=== PATIENT | female | born 1990 | race American Indian/Alaskan Native ===

== ENCOUNTER 2022-01-22 11:16 | Outpatient (CLI) | payer MEDICAID ==
[2022-01-22 12:21] VITALS: BP 113/61
[2022-01-22] MEDS ORDERED: LACTATED RINGERS 500 ML IV ONE (13:07)
== END 2022-01-22 13:18 | disposition home or self-care (01) ==
LOC: TRG 11:16 → APU 11:51 → TRG 13:18
PROVIDERS: ATTEND Obstetrics & Gynecology
DX: O26.893 Other specified pregnancy related conditions, third trimester (principal); N89.8 Other specified noninflammatory disorders of vagina; Z3A.30 30 weeks gestation of pregnancy
CPT/HCPCS: 59025

== ENCOUNTER 2022-03-24 03:40 | Inpatient (IN) | payer MEDICAID ==
[2022-03-24] MEDS ORDERED: CARBOPROST TROMETHAMINE 250 MCG/1 ML INJ IM PRN (04:21)
[2022-03-24] MEDS ORDERED: BUTORPHANOL 2 MG/1 ML INJ IV PRN (04:21)
[2022-03-24] MEDS ORDERED: METHYLERGONOVINE MALEATE 0.2 MG/ML VIAL IM PRN (04:21)
[2022-03-24] MEDS ORDERED: FAMOTIDINE 20 MG/2 ML INJ IV ONE ×2 (04:21→07:10)
[2022-03-24] MEDS ORDERED: LOPERAMIDE 2 MG CAP PO PRN (04:21)
[2022-03-24] MEDS ORDERED: BICITRA ORAL LIQD 30ML PO ONE (04:21)
[2022-03-24] MEDS ORDERED: ePHEDrine SULFATE 50 MG/1 ML INJ IV PRN (04:21)
[2022-03-24] MEDS ORDERED: METOCLOPRAMIDE 10 MG/2 ML INJ IV ONE (04:21)
[2022-03-24] MEDS ORDERED: miSOPROStol 200 MCG TAB PR PRN (04:21)
[2022-03-24] MEDS ORDERED: LACTATED RINGERS 1,000 ML ONE (04:26)
[2022-03-24] MEDS ORDERED: LACTATED RINGERS 1,000 ML IV SCH ×2 (04:30)
[2022-03-24 04:42] LABS: Basophils % (Auto) 0.1 % (0.0-1.8); Eosinophils % (Auto) 0.3 % (0.0-4.3); Hematocrit 35.3 % (30.3-42.9); Lymphocytes # (Auto) 1.8 K/mm3 (1.2-5.4); Lymphocytes % (Auto) 14.3 % (13.4-35.0); Mean Corpuscular HGB Conc 34 % (30-34); Mean Corpuscular Volume 89 fl (79-97); Monocytes # (Auto) 0.6 K/mm3 (0.0-0.8); Monocytes % (Auto) 4.9 % (0.0-7.3); Platelet Count 237 K/mm3 (140-440); Red Blood Count 3.96 M/mm3 (3.65-5.03)
[2022-03-24] MEDS ORDERED: OXYTOCIN DRIP 30 UNITS/500 ML BAG IV SCH ×2 (05:00→08:00)
[2022-03-24] MEDS ORDERED: METOCLOPRAMIDE 10 MG/2 ML INJ ONE (07:10)
[2022-03-24] MEDS ORDERED: ceFAZolin/Water 2 GM/20 ML 2 GM/20 ML SYRINGE IV ONE (07:10)
[2022-03-24] MEDS ORDERED: BICITRA ORAL LIQD 30ML ONE (07:10)
--- NOTE | 2022-03-24 07:24 | Anesthesia Day of Surgery ---
Anesthesia Day of Surgery - Day of Surgery Patient Examined: Yes Patient H&P Reviewed: Yes Patient is NPO: Yes
--- NOTE | 2022-03-24 07:30 | Anesthesia Consultation ---
Anesthesia Consult and Med Hx Date of service: 03/24/22 - Airway Anesthetic Teeth Evaluation: Poor ROM Head & Neck: Adequate Mental/Hyoid Distance: Adequate Mallampati Class: Class II Intubation Access Assessment: Probably Good - Pulmonary Exam CTA: Yes - Cardiac Exam Cardiac Exam: RRR - Pre-Operative Health Status ASA Pre-Surgery Classification: ASA2 Proposed Anesthetic Plan: Spinal - Pre-Anesthesia Comment Pre-Anesthesia Comments: csection 2018 - Pulmonary Hx Smoking: No Hx Asthma: Yes (seasonal) - Cardiovascular System Hx Hypertension: Yes (at the start of this no medications prdered) Hx Heart Attack/AMI: No Hx Angina: No Hx Percutaneous Transluminal Coronary Angioplasty (PTCA): No Hx Cardia Arrhythmia: No Hx Pacemaker: No Hx Internal Defibrillator: No - Central Nervous System Hx Neuromuscular Disorder: No Hx Seizures: No Hx Back Pain: Yes Hx Psychiatric Problems: No - Gastrointestinal Hx Ulcer: No Hx Gastroesophageal Reflux Disease: No - Endocrine Hx Renal Disease: No Hx Hypothyroidism: No Hx Hyperthyroidism: No - Hematic Hx Anemia: No Hx Sickle Cell Disease: No - Other Systems Hx Alcohol Use: No Hx Substance Use: Yes Hx Obesity: Yes
[2022-03-24] MEDS ORDERED: ONDANSETRON 4 MG/2 ML INJ IV PRN (07:44)
[2022-03-24] MEDS ORDERED: LANOLIN/ZINC/DIMETHICONE (LANSINOH) 7 GM TP PRN (07:44)
[2022-03-24] MEDS ORDERED: ACETAMINOPHEN 325 MG TAB PO PRN (07:44)
[2022-03-24] MEDS ORDERED: WITCH HAZEL/ GLYCERIN PAD TP PRN (07:44)
[2022-03-24] MEDS ORDERED: IBUPROFEN 600 MG TAB PO PRN (07:44)
[2022-03-24] MEDS ORDERED: NALOXONE 0.4 MG/1 ML INJ IV PRN (07:44)
[2022-03-24] MEDS ORDERED: MORPHINE 4 MG/1 ML INJ IV PRN (07:44)
[2022-03-24] MEDS ORDERED: SIMETHICONE 80 MG CHEW TAB PO PRN (07:44)
--- NOTE | 2022-03-24 07:44 | History and Physical Report ---
History of Present Illness Date of examination: 03/24/22 Date of admission: 03/24/22 07:34 Chief complaint: Contractions History of present illness: 31-year-old -0-0-1 at 38+6 weeks who presents with regular uterine contractions. The patient receives care with Dr. Marianne Garnica. She has a history of a previous delivery and elects to undergo repeat . She denies leakage of fluid. Past History Past Medical History: no pertinent history Past Surgical History: section Social history: - Obstetrical History Expected Date of Delivery: 04/01/22 Actual Gestation: 38 Week(s) 6 Day(s) : 2 Para: 1 Hx # Term Pregnancies: 1 Spontaneous Abortions: 0 Induced : 0 Number of Living Children: 1 Medications and Allergies Allergies Allergy/AdvReac Type Severity Reaction Status Date / Time No Known Allergies Allergy Unverified 01/22/22 13:06 Active Meds: Active Medications Butorphanol Tartrate (Butorphanol 2 Mg/1 Ml Inj) 1 mg IV Q2H PRN PRN Reason: Pain, Moderate(4-6) LABOR PAIN Last Admin: 03/24/22 04:37 Dose: 1 mg Carboprost Tromethamine (Carboprost Tromethamine 250 Mcg/1 Ml Inj) 250 mcg IM ONCE PRN PRN Reason: Uterine Bleeding Ephedrine Sulfate (Ephedrine Sulfate 50 Mg/1 Ml Inj) 10 mg IV Q2M PRN PRN Reason: Hypotension Lactated Ringer's (Lactated Ringers) 1,000 mls @ 125 mls/hr IV DIRECT ISA Lactated Ringer's (Lactated Ringers) 1,000 mls @ 2,250 mls/hr IV PREOP ISA Stop: 03/25/22 04:57 Oxytocin/Sodium Chloride (Pitocin/Ns 30 Unit/500ml) 30 units in 500 mls @ 0 mls/hr IV TITR ISA; Protocol Loperamide HCl (Loperamide 2 Mg Cap) 2 mg PO ONCE PRN PRN Reason: give with Hemabate Methylergonovine Maleate (Methylergonovine Maleate 0.2 Mg/Ml Vial) 0.2 mg IM ONCE PRN PRN Reason: Uterine Bleeding Misoprostol (Misoprostol 200 Mcg Tab) 800 mcg [place] ONCE PRN PRN Reason: Uterine Bleeding Review of Systems All systems: negative Genitourinary: pelvic pain, contractions - Vital Signs Vital signs: Vital Signs Temp Pulse Ox 98.6 F 99 03/24/22 04:06 03/24/22 04:06 Temp Pulse Resp BP Pulse Ox 98.6 F 96 H 98 03/24/22 04:06 03/24/22 07:23 03/24/22 07:23 - Physical Exam Breasts: Positive: deferred Cardiovascular: Regular rate Lungs: Positive: Clear to auscultation Abdomen: Positive: normal appearance - Obstetrical Cervical Dilatation: 3 Uterine Contraction Pattern: Regular Results Result Diagrams: 03/24/22 04:20 Abnormal lab results 03/24/22 Range/Units 04:20 WBC 12.9 H (4.5-11.0) K/mm3 Seg Neutrophils % 80.4 H (40.0-70.0) % Seg Neutrophils # 10.3 H (1.8-7.7) K/mm3 All other labs normal. Assessment and Plan - Patient Problems (1) Active labor at term Current Visit: Yes Status: Acute Plan to address problem: Admit to labor and delivery and proceed with a repeat delivery (2) Previous delivery affecting Current Visit: Yes Status: Acute
--- NOTE | 2022-03-24 07:47 | Procedure Note ---
OB Delivery Note - Delivery Date of Delivery: 03/24/22 Surgeon: FLACO YING Estimated blood loss: 500cc - Section Preop diagnosis: repeat Postop diagnosis: same section procedure: section, repeat low transverse Disposition: PACU Complications: none - A at 1 minute: 9 at 5 minutes: 9 Gender: Male (Weight 6 pounds 8 ounces)
--- NOTE | 2022-03-24 07:48 | Operative Report ---
Operative Report Operative Report: Date of surgery: March 24, 2022 Preoperative diagnosis: at 38+6 weeks; previous delivery; active labor at term Postoperative diagnosis: Same as above Procedure: Repeat low transverse delivery Surgeon: Kenia Braden M.D. Anesthesia: Regional Estimated blood loss: 500 mL IV fluids: 1000 mL Urine output: 250 mL Findings: Liveborn male infant with Apgars of 9 and 9 weight 6 pounds 8 ounces Indications: 31-year-old -0-0-1 at 38+6 weeks who presents in active labor. Procedure: The patient was taken to the operating room and given regional anesthesia without complication. She was prepped and draped in a normal sterile fashion. A Pfannenstiel skin incision was made down to layer the fascia which was nicked in the midline extended laterally with the Bovie cautery. The superior aspect of the rectus fascia was grasped with Roly clamps x2 and the rectus muscles off sharply. This was done in inferior fashion as well. The rectus muscle midline and peritoneum entered bluntly. An Cuong retractor was then inserted. A bladder blade was placed. The vesicouterine peritoneum was then entered sharply with Metzenbaum scissors. A bladder flap was created digitally. A low transverse uterine incision was then made and extended digitally. There was meconium stained fluid upon entry into the uterine cavity. The head was delivered through the incision with fundal pressure. Nuchal cord x1 was manually reduced the cord was clamped and cut x2 and infant was passed off to pediatrics. The placenta was then manually extracted. The uterus was then exteriorized and cleared of clots and debris. The uterine incision was then closed in a running locked fashion with 0 Vicryl additional imbricating stitch was applied for 2 layer closure. The posterior cul-de-sac was then copiously irrigated. The uterus was replaced back into the abdomen and pelvis were the gutters were then irrigated. The Cuong retractor was then removed. The peritoneum was then reapproximated with 3-0 Vicryl incorporating the rectus muscle. The fascia was then closed with 0 Vicryl in a running fashion. The skin was then reapproximated with 3-0 Monocryl on a Leodan needle subcuticular fashion. Steri-Strips to place across the incision and a Crede procedures performed at the end of the surgery. A pressure dressing was applied to the incision. The surgery productive of a liveborn male infant with Apgars of 9 and 9 weight 6 pounds 8 ounces. The patient was taken to the recovery room in stable condition. All sponge laps and needle counts correct x2.
[2022-03-24] MEDS ORDERED: PHENYLEPHRINE 10 MG/1 ML INJ SDV ONE (07:51)
[2022-03-24] MEDS ORDERED: BUPIVACAINE/PF (0.5%) 5 MG/1 ML 30 ML VIAL INFILTRATI ONE (07:51)
[2022-03-24] MEDS ORDERED: ONDANSETRON 4 MG/2 ML INJ ONE (07:52)
[2022-03-24] MEDS ORDERED: ceFAZolin/STERILE WATER 2 GM/20 ML SYRINGE IV ONE (08:17)
[2022-03-24] MEDS ORDERED: SODIUM CHLORIDE 0.9% IRR 1,500 ML BOTTLE IR ONE (08:30)
[2022-03-24] MEDS ORDERED: WATER FOR IRRIG STERILE 1,500 ML BOTTLE IR ONE (08:30)
[2022-03-24] MEDS ORDERED: OXYTOCIN 10 UNIT/1 ML INJ ONE (08:42)
[2022-03-24] MEDS ORDERED: SODIUM CHLORIDE 0.9% 100 ML ONE ×2 (09:01)
[2022-03-24] MEDS ORDERED: dexAMETHasone 20 MG/5 ML VIAL ONE (09:02)
--- NOTE | 2022-03-24 09:37 | Progress Note ---
Spinal Anesthesia Block - Spinal Anesthesia Block Start Time: 07:59 Stop Time: 08:10 Performed by:: KENIA HARVEY Procedure: Patient IDed, H&P reviewed, all questions and concerns were answered, and consent was signed. Timeout was performed at bedside. Patient in sitting position. Sterile prep and drape was performed. [3] ml of 1% lidocaine skin wheal at L[3]- L [4]. Needle introducer advanced x 2 attempts. 24 gauge spinal needle advanced. Clear, free flowing CSF. negative blood, negative paresthesia. Spinal dose given. All needles removed. Patient tolerated procedure.
--- NOTE | 2022-03-24 09:38 | Progress Note ---
Regional Anesthesia Block - Regional Anesthesia Block Start Time: :15 Stop Time: :20 Performed By:: KENIA HARVEY Procedure: Patient consented for TAP block for post surgical pain management. Patient identified, monitors placed, and time out performed. TAP identified bilaterally via ultrasound. Skin prepped bilaterally with [chlorhexidine] and [22g stimuplex] needle advanced to the TAP. [Marcaine 0.22% 35ml] injected under ultrasound guidance on the [left] side. [Marcaine 0.22% 35ml] injected under ultrasound guidance on the [right] side. Negative aspiration every 5mL, No change in heart rate or rhythm. Patient tolerated the procedure well. No apparent complications seen.
[2022-03-24] MEDS: D5W/LACTATED RINGERS 1,000 ML IV SCH ×2 (14:40→22:01)
[2022-03-24] MEDS: KETOROLAC 30 MG/1 ML INJ IV PRN ×2 (14:40→20:22)
--- NOTE | 2022-03-24 15:18 | Post Anesthesia Evaluation ---
- Post Anesthesia Evaluation Patient Participated: Yes Airway Patent: Yes Stable Respiratory Function: Yes Nausea/Vomiting: No Temp > 96.8F: Yes Pain Manageable: Yes Adequeate Hydration: Yes Anesthesia Complications: No Block Receding Appropriately: Yes Patient on Ventilator: No
[2022-03-24 21:22] LABS: Hematocrit 29.4 % (30.3-42.9); Hemoglobin 9.4 gm/dl (10.1-14.3)
[2022-03-24] MEDS: oxyCODONE /ACETAMINOPHEN 5-325MG TAB PO PRN (22:01)
[2022-03-25] MEDS: oxyCODONE /ACETAMINOPHEN 5-325MG TAB PO PRN ×3 (05:46→19:53)
--- NOTE | 2022-03-25 18:27 | Progress Note ---
Assessment and Plan PPd 2 s/p ltcs. Doing well. Plan for discharge. Subjective - Subjective Date of service: 03/25/22 Patient reports: appetite normal, voiding normally, pain well controlled, ambulating normally [place]: doing well Objective - Vital Signs Latest vital signs: Vital Signs Temp Pulse Resp BP BP Pulse Ox Pulse Ox 03/25/22 15:40 98 F 81 20 114/77 98 03/25/22 08:21 97.6 F 67 18 105/72 97 03/25/22 05:38 98 03/25/22 04:47 98.2 F 66 20 95/55 97 03/25/22 03:20 98 03/25/22 01:20 98 03/25/22 00:49 98.2 F 79 20 93/50 97 03/25/22 00:30 98 03/24/22 22:00 98 03/24/22 20:36 98.0 F 79 20 99/66 98 03/24/22 20:15 98 Intake and Output 03/25/22 03/25/22 03/25/22 06:59 14:59 22:59 Intake Total 240 120 320 Output Total 600 900 600 Balance -360 -780 -280 Intake: Oral 240 120 320 Output: Urine 600 900 600 Void 600 900 600 Other: Total, Intake Amount 240 120 320 Total, Output Amount 600 900 600 # Voids Void 1 3 - Exam Breasts: Present: deferred Cardiovascular: Present: Regular rate, Normal S1, Normal S2 Lungs: Present: Clear to auscultation, Normal air movement Abdomen: Present: normal appearance, soft, normal bowel sounds Uterus: Present: normal, firm Extremities: Present: normal Deep Tendon Reflex Grade: Normal +2 - Labs Labs: Abnormal lab results 03/24/22 Range/Units 20:51 Hgb 9.4 L (10.1-14.3) gm/dl Hct 29.4 L (30.3-42.9) %
[2022-03-26] MEDS: oxyCODONE /ACETAMINOPHEN 5-325MG TAB PO PRN (00:46)
--- NOTE | 2022-03-26 11:18 | Discharge Summary ---
Providers - Providers Date of Admission: 03/24/22 07:34 Date of discharge: 03/26/22 Attending physician: POLO LEA Primary care physician: POLO LEA Hospitalization Reason for admission: active labor, section Delivery: Procedure: repeat low transverse Incision: normal, dry, intact Discharge diagnosis: IUP at term delivered [place] baby: male Hospital course: unremarkable Condition at discharge: Good Disposition: 01 HOME / SELF CARE / HOMELESS Plan - Discharge Medications Prescriptions: Docusate Sodium [Colace] 100 mg PO BID #60 capsule Ferrous Sulfate [Feosol 325 MG tab] 325 mg PO BID #60 tablet Ibuprofen [Motrin] 800 mg PO Q8HR PRN #40 tablet PRN Reason: Pain, Moderate (4-6) oxyCODONE /ACETAMINOPHEN [Percocet 5/325] 2 tab PO Q6HR PRN #40 tablet PRN Reason: Pain - Provider Discharge Summary Activity: routine, no sex for 6 weeks, no heavy lifting 4 weeks, no strenuous exercise Diet: routine Instructions: routine Additional instructions: [] Smoking cessation referral if applicable(refer to patient education folder for contact #) [] Refer to [facility] Booklet Call your doctor immediately for: * Fever > 100.5 * Heavy vaginal bleeding ( >1 pad per hour) * Severe persistent headache * Shortness of breath * Reddened, hot, painful area to leg or breast * Drainage or odor from incision. * Keep incision clean and dry at all times and follow doctor's instructions regarding bathing/showering - Follow up plan Follow up: POLO LEA MD [Primary Care Provider] - 14 Days
[2022-03-26 12:17] VITALS: BP 122/72
== END 2022-03-26 13:10 | disposition home or self-care (01) | DRG 765 ==
LOC: TRG 03:40 → APU 03:41 → TRG 07:32 → APU 07:34 → OB 11:17
PROVIDERS: ADMIT Obstetrics & Gynecology; ATTEND Obstetrics & Gynecology
PROC: 10D00Z1 Extraction of Products of Conception, Low, Open Approach (ICD-10-PCS; principal; 2022-03-24)
PROC: 3E0T3BZ Introduction of Anesthetic Agent into Peripheral Nerves and Plexi, Percutaneous Approach (ICD-10-PCS; 2022-03-24)
DX: O34.211 Maternal care for low transverse scar from previous cesarean delivery (principal); D62 Acute posthemorrhagic anemia; Z3A.38 38 weeks gestation of pregnancy; Z37.0 Single live birth; Z20.822 Contact with and (suspected) exposure to COVID-19; O99.52 Diseases of the respiratory system complicating childbirth; J45.909 Unspecified asthma, uncomplicated; O99.214 Obesity complicating childbirth
CPT/HCPCS: 36415; 85014; 85018; 85025; 86850; 86900; 86901; G0378; J3490; J7060; J7121; J0595; J0690; J1100; J1885; J2370; J2405; J2590; J2765; U0003